=== PATIENT | female | born 2000 | race Two or more races ===

== ENCOUNTER 2025-03-13 17:25 | Emergency (ER) | payer OTHER ==
[~2025-03-13] VITALS: Ht 152.4 cm; Wt 59.0 kg
[2025-03-13] MEDS ORDERED: PANTOPRAZOLE SODIUM 40 MG in 0.9 % SODIUM CHLORIDE 8 ML IV PUSH STA (18:19)
[2025-03-13] MEDS ORDERED: ONDANSETRON HCL 2 MG/ML VIAL IV ONE (18:30)
[2025-03-13] MEDS ORDERED: 0.9 % SODIUM CHLORIDE 1,000 ML IV ONE (18:30)
[2025-03-13 18:48] LABS: BASO % 0.3 % (0.1-1.2); EOS # 0.00 (0.04-0.54); EOS % 0.0 % (0.7-7.0); LYMPH # 0.84 (1.18-3.74); LYMPH % 5.2 % (19.3-53.1); MEAN PLATELET VOLUME 13.30 fl (9.4-12.4); MONO # 0.27 (0.24-0.82); MONO % 1.7 % (4.7-12.5); NEUT # 14.91 (1.56-6.13); NEUT % 92.4 % (34.0-71.1); RED CELL DISTRIBUTION WIDTH 14.7 % (11.6-14.4)
[2025-03-13 19:11] LABS: ALT/SGPT 16.0 U/L (12-78); AST/SGOT 13.0 U/L (15-37); BILIRUBIN TOTAL 0.43 mg/dL (0.3-1.2); BUN CREA RATIO 15.0 (7.0-25.0); CREATININE SERUM 1.03 mg/dL (0.55-1.02); GFR 65.29; GLOBULINA 3.0 G/DL (2.4-3.5); GLUCOSE FASTING 149.0 mg/dL (65-100); OSMOLALITY SERUM 287.0 MOSM/KG (275-295)
[2025-03-13] MEDS ORDERED: METOCLOPRAMIDE HCL 10 MG in DEXTROSE 5 % IN WATER 50 ML IV ONE (19:45)
[2025-03-13] MEDS ORDERED: ONDANSETRON ODT8 MG PO (20:14)
[2025-03-13] MEDS ORDERED: PROTONIX40 MG PO (20:14)
[2025-03-13] MEDS ORDERED: DIPHENHYDRAMINE HCL 50 MG/ML VIAL 1ML IV ONE (22:30)
[2025-03-13] MEDS ORDERED: METHYLPREDNISOLONE SOD SUCC 125 MG VIAL IV ONE (22:30)
== END 2025-03-14 00:11 | disposition home or self-care (01) ==
LOC: ER 17:25
PROVIDERS: General Practice
DX: K29.60 Other gastritis without bleeding (principal); R11.10 Vomiting, unspecified